=== PATIENT | male | born 1995 | race Caucasian/White ===

== ENCOUNTER 2020-06-17 13:16 | Inpatient (IN) | payer OTHER ==
[2020-06-17 14:17] VITALS: BMI 18.7
[2020-06-17] MEDS ORDERED: BISMUTH SUBSALICYLATE 262 MG/15 ML BTL PO PRN (15:08)
[2020-06-17] MEDS ORDERED: IBUPROFEN 400 MG TABLET (FP) PO PRN (15:08)
[2020-06-17] MEDS ORDERED: MENTHOL/PHENOL 1 EACH UD MM PRN (15:08)
[2020-06-17] MEDS ORDERED: ACETAMINOPHEN 325 MG TABLET (FP) PO PRN ×2 (15:08)
[2020-06-17] MEDS ORDERED: METHADONE HCL 10 MG TABLET (FOR DETOX USE ONLY) PO ONE (15:08)
[2020-06-17] MEDS ORDERED: MAGNESIUM CITRATE 300 ML BOTTLE PO PRN (15:08)
[2020-06-17] MEDS: PRENATAL VITAMINS W/ FOLIC ACID TABLET (FP) PO SCH (16:52)
[2020-06-17] MEDS: hydrOXYzine PAMOATE 25 MG CAPSULE (FP) PO SCH ×2 (16:54→22:17)
[2020-06-17] MEDS: ONDANSETRON *ODT* 4 MG TABLET SL PRN (17:46)
[2020-06-17 19:33] LABS: POTASSIUM 3.9 mmol/L (3.5-5.1)
[2020-06-17 19:35] LABS: CALCIUM 9.7 mg/dL (8.5-10.1); HEMATOCRIT 42.8 % (35.4-49); HEMOGLOBIN 14.6 GM/dL (11.7-16.9); MCH 30.8 pg (25.7-33.7); MCHC 34.2 g/dl (32.0-35.9); MEAN PLT VOLUME 8.6 fl (7.5-11.1); PLATELET COUNT 288 K/MM3 (134-434); RBC 4.75 M/mm3 (4.00-5.60); RDW 12.7 % (11.9-15.9)
[2020-06-17 19:36] LABS: ALBUMIN 4.3 g/dl (3.4-5.0); BLOOD UREA NITROGEN 12.7 mg/dL (7-18)
[2020-06-17 19:39] LABS: CREATININE 0.9 mg/dL (0.55-1.3)
[2020-06-17 19:41] LABS: BILIRUBIN,TOTAL 0.9 mg/dL (0.2-1); TOT PROT 7.7 g/dl (6.4-8.2)
[2020-06-17] MEDS: THIAMINE HCL 100 MG TABLET (FP) PO SCH (22:16)
[2020-06-17] MEDS: MELATONIN 5 MG TABLETS PO SCH (22:17)
[2020-06-18] MEDS: cloNIDine HCL 0.1 MG TABLET PO PRN (01:15)
[2020-06-18] MEDS: hydrOXYzine PAMOATE 25 MG CAPSULE (FP) PO SCH ×5 (05:40→22:13)
[2020-06-18] MEDS ORDERED: METHADONE HCL 5 MG TABLET (FOR DETOX USE ONLY) ONE (09:45)
[2020-06-18] MEDS ORDERED: METHADONE HCL 10 MG TABLET (FOR DETOX USE ONLY) ONE (09:45)
[2020-06-18] MEDS ORDERED: METHADONE (DETOX) 20 MG, METHADONE (DETOX) 5 MG PO ONE (10:00)
[2020-06-18] MEDS ORDERED: diazePAM 5 MG TABLET PO PRN (10:07)
[2020-06-18] MEDS: PRENATAL VITAMINS W/ FOLIC ACID TABLET (FP) PO SCH (10:38)
[2020-06-18] MEDS: MAG HYDROX/AL HYDROX/SIMETH 30 ML UNIT-DOSE CUP PO PRN ×2 (10:39→19:18)
[2020-06-18] MEDS: ONDANSETRON *ODT* 4 MG TABLET SL PRN (14:51)
[2020-06-18 15:02] LABS: HIV INTERPRETATION NEGATIVE (NEGATIVE)
[2020-06-18] MEDS: NICOTINE POLACRILEX 2 MG GUM BUC PRN (19:17)
[2020-06-18] MEDS: THIAMINE HCL 100 MG TABLET (FP) PO SCH (22:13)
[2020-06-18] MEDS: MELATONIN 5 MG TABLETS PO SCH (22:17)
[2020-06-19] MEDS: hydrOXYzine PAMOATE 25 MG CAPSULE (FP) PO SCH ×5 (05:29→22:20)
[2020-06-19] MEDS: cloNIDine HCL 0.1 MG TABLET PO PRN (05:29)
[2020-06-19] MEDS ORDERED: METHADONE HCL 10 MG TABLET (FOR DETOX USE ONLY) PO ONE (10:00)
[2020-06-19] MEDS: METHOCARBAMOL 500 MG TABLET PO PRN ×2 (10:34→20:50)
[2020-06-19] MEDS: PRENATAL VITAMINS W/ FOLIC ACID TABLET (FP) PO SCH (10:35)
[2020-06-19] MEDS: ONDANSETRON *ODT* 4 MG TABLET SL PRN (11:38)
[2020-06-19] MEDS: NICOTINE POLACRILEX 2 MG GUM BUC PRN (18:09)
[2020-06-19] MEDS: MAGNESIUM HYDROX 2400MG/30ML ORAL SUSPENSION 30 ML CUP PO PRN (20:50)
[2020-06-19] MEDS: MELATONIN 5 MG TABLETS PO SCH (22:20)
[2020-06-19] MEDS: THIAMINE HCL 100 MG TABLET (FP) PO SCH (22:20)
[2020-06-20] MEDS: METHOCARBAMOL 500 MG TABLET PO PRN ×2 (05:42→18:11)
[2020-06-20] MEDS: hydrOXYzine PAMOATE 25 MG CAPSULE (FP) PO SCH ×5 (05:42→22:16)
[2020-06-20] MEDS ORDERED: METHADONE HCL 5 MG TABLET (FOR DETOX USE ONLY) ONE (09:10)
[2020-06-20] MEDS ORDERED: METHADONE HCL 10 MG TABLET (FOR DETOX USE ONLY) ONE (09:10)
[2020-06-20] MEDS ORDERED: METHADONE (DETOX) 10 MG, METHADONE (DETOX) 5 MG PO ONE (10:00)
[2020-06-20] MEDS: PRENATAL VITAMINS W/ FOLIC ACID TABLET (FP) PO SCH (10:24)
[2020-06-20] MEDS: MAGNESIUM HYDROX 2400MG/30ML ORAL SUSPENSION 30 ML CUP PO PRN (13:09)
[2020-06-20] MEDS: NICOTINE POLACRILEX 2 MG GUM BUC PRN (19:24)
[2020-06-20] MEDS: MELATONIN 5 MG TABLETS PO SCH (22:16)
[2020-06-20] MEDS: THIAMINE HCL 100 MG TABLET (FP) PO SCH (22:16)
[2020-06-21] MEDS: hydrOXYzine PAMOATE 25 MG CAPSULE (FP) PO SCH ×2 (05:35→09:09)
[2020-06-21] MEDS ORDERED: DICYCLOMINE HCL 10 MG CAPSULE PO ONE (08:53)
[2020-06-21] MEDS: PRENATAL VITAMINS W/ FOLIC ACID TABLET (FP) PO SCH (09:10)
[2020-06-21 09:43] VITALS: BP 121/72; PULSE 98; TEMP 97.3
[2020-06-21] MEDS ORDERED: METHADONE HCL 10 MG TABLET (FOR DETOX USE ONLY) PO ONE (10:00)
[2020-06-22] MEDS ORDERED: METHADONE HCL 5 MG TABLET (FOR DETOX USE ONLY) PO ONE (06:00)
== END 2020-06-21 10:05 | disposition other institution (70) | DRG 897 ==
LOC: YASAS 13:16 → Y6N 15:38
PROVIDERS: ADMIT Allergy & Immunology; ATTEND Allergy & Immunology
PROC: HZ2ZZZZ Detoxification Services for Substance Abuse Treatment (ICD-10-PCS; principal; 2020-06-17)
DX: F11.23 Opioid dependence with withdrawal (principal); F19.280 Other psychoactive substance dependence with psychoactive substance-induced anxiety disorder; F19.282 Other psychoactive substance dependence with psychoactive substance-induced sleep disorder; F19.24 Other psychoactive substance dependence with psychoactive substance-induced mood disorder; F13.10 Sedative, hypnotic or anxiolytic abuse, uncomplicated; F12.20 Cannabis dependence, uncomplicated; F17.213 Nicotine dependence, cigarettes, with withdrawal; F41.9 Anxiety disorder, unspecified; Z62.810 Personal history of physical and sexual abuse in childhood; Z91.410 Personal history of adult physical and sexual abuse
CPT/HCPCS: 36415; 80053; 85027; 86780; 87389; 93005; 93010; C9803; J0735; Q0162; U0003